=== PATIENT | female | born 1965 | race Caucasian/White ===

== ENCOUNTER 2016-11-03 12:50 | Outpatient (CLI) | payer OTHER, BC | END 2016-11-03 23:00 | LOC: RT SRH 12:50 | DX: R00.2 Palpitations (principal) ==

== ENCOUNTER 2017-02-21 15:36 | Outpatient (CLI) | payer OTHER ==
--- NOTE | 2017-02-21 16:11 | DIAGNOSTIC IMAGING REPORT ---
PROCEDURE: XR CERVICAL SPINE 4 OR 5 VIEW INDICATION: R ARM WEAKNESS AND NUMBNESS TECHNIQUE: Five views. COMPARISON: None. FINDINGS: There is mild spondylosis at C5-6 and C6-7. No evidence of an acute process or fracture. Neural foramina are normal. IMPRESSION: 1. Mild spondylosis C5-6 and C6-7. Otherwise negative cervical spine.
== END 2017-02-21 23:00 ==
LOC: XR SRH 15:36
DX: M47.812 Spondylosis without myelopathy or radiculopathy, cervical region (principal)

== ENCOUNTER 2017-04-28 09:27 | Outpatient (CLI) | payer OTHER ==
--- NOTE | 2017-04-28 11:25 | DIAGNOSTIC IMAGING REPORT ---
PROCEDURE: CT ABD/PELVIS WITH CONTRAST CLINICAL INDICATION: Left lower quadrant pain. TECHNIQUE: 125 ml of Isovue 300 were injected intravenously and axial images were obtained of the entire abdomen and pelvis with sagittal and coronal reformations. COMPARISON: CT abdomen/pelvis 07/05/2015. FINDINGS: ABDOMEN: Lung base are clear. Heart size is normal. Cholecystectomy. Liver, pancreas, spleen, adrenal glands and kidneys are normal. Normal abdominal aorta. No retroperitoneal adenopathy. PELVIS: Mild sigmoid diverticulosis but no evidence of inflammatory changes. Appendiceal stump. The uterus, adnexa and bladder are unremarkable. No evidence of a pelvic mass, inflammatory changes or free fluid. Bilateral L5 spondylolysis with grade 1 anterolisthesis. IMPRESSION: 1. Mild sigmoid diverticulosis without evidence of inflammatory changes 2. Cholecystectomy 3. Bilateral L5 spondylolysis with grade 1 L5-S1 anterolisthesis 4. Results discussed with Dr. Brooks All CT scans at this facility use dose modulation, iterative reconstruction, and/or weight-based dosing when appropriate to reduce radiation dose to as low as reasonably achievable.
== END 2017-04-28 23:00 ==
LOC: CT SRH 09:27
DX: R10.9 Unspecified abdominal pain (principal); K57.32 Diverticulitis of large intestine without perforation or abscess without bleeding; Z90.49 Acquired absence of other specified parts of digestive tract; M43.06 Spondylolysis, lumbar region
CPT/HCPCS: 90074; 91631; 92560